=== PATIENT | female | born 1995 | race Caucasian/White ===

== ENCOUNTER 2020-10-12 22:19 | Emergency (ER) | payer MEDICAID ==
[~2020-10-12] VITALS: Ht 157.5 cm; Wt 81.8 kg
[2020-10-12 22:26] VITALS: Ht 157.5 cm; Wt 81.8 kg
[2020-10-12] MEDS ORDERED: CLARITIN 10 MG10 MG PO (22:28)
[2020-10-12] MEDS ORDERED: PROAIR HFA8.5 G1 INH (22:28)
[2020-10-12] MEDS ORDERED: CLEOCIN HCL150 MG PO (22:28)
[2020-10-12] MEDS ORDERED: ZOFRAN ODT4 MG/UDTAB PO (22:48)
[2020-10-12 23:00] VITALS: BP 136/74
== END 2020-10-12 23:00 | disposition home or self-care (01) ==
LOC: D.ER 22:19
DX: R11.10 Vomiting, unspecified (principal)